=== PATIENT | male | born 1955 | race Asian ===

== ENCOUNTER 2017-01-31 19:00 | Inpatient (IN) | payer OTHER ==
[~2017-01-31] VITALS: Ht 167.6 cm; Wt 86.6 kg
[~2017-01-31 19:00] MED LIST: ALLO100T64 PO; ASPI-535 PO; ATEN-51 PO; ATOR40TA68 PO; Ibuprofen PO; LISI40TA PO; METF-382 PO; NIFE60TA24 PO
[2017-01-31 20:08] LABS: ADD SCAN DIFF NO
[2017-01-31] MEDS ORDERED: IBUP-1542 PO (20:11)
[2017-01-31 20:12] LABS: BASOPHIL # 0.1 10^3/ul (0.0-0.1); BASOPHILS % 0.8 % (0.0-2.0); EOSINOPHILS # 0.5 10^3/ul (0.0-0.5); EOSINOPHILS % 4.8 % (0.0-7.0); HEMATOCRIT 43.1 % (42.0-52.0); HEMOGLOBIN 14.8 g/dl (14.0-18.0); LYMPHOCYTES # 3.2 10^3/ul (0.8-2.9); LYMPHOCYTES % 28.7 % (15.0-51.0); MEAN CORPUSCULAR HEMOGLOBIN 29.5 pg (29.0-33.0); MEAN CORPUSCULAR HGB CONC 34.3 g/dl (32.0-37.0); MEAN CORPUSCULAR VOLUME 85.9 fl (82.0-101.0); MEAN PLATELET VOLUME 10.2 fl (7.4-10.4); MONOCYTES % 9.3 % (0.0-11.0); NEUTROPHIL # 6.1 10^3/ul (1.6-7.5); NEUTROPHILS % 55.1 % (39.0-77.0); PLATELET COUNT 333 10^3/UL (140-415); RED BLOOD COUNT 5.02 10^6/ul (4.70-6.10); RED CELL DISTRIBUTION WIDTH 12.4 % (11.5-14.5); WHITE BLOOD COUNT 11.1 10^3/ul (4.8-10.8)
[2017-01-31 20:14] LABS: ADD UMIC YES; URINE BILIRUBIN (Dip) NEGATIVE (NEGATIVE); URINE BLOOD (Dip) NEGATIVE (NEGATIVE); URINE COLOR LT. YELLOW (YELLOW); URINE GLUCOSE (Dip) NEGATIVE (NEGATIVE); URINE KETONES (Dip) TRACE (NEGATIVE); URINE LEUKOCYTE ESTERASE (Dip) NEGATIVE (NEGATIVE); URINE NITRITE (Dip) NEGATIVE (NEGATIVE); URINE TOTAL PROTEIN (Dip) 2+ (NEGATIVE); URINE UROBILINOGEN (Dip) 0.2 E.U./dL (0.1-1.0)
[2017-01-31 20:21] LABS: INR 0.99; PROTIME 13.1 Sec (12.2-14.2)
[2017-01-31 20:22] LABS: PARTIAL THROMBOPLASTIN TIME 27.5 Sec (25.0-35.0)
[2017-01-31] MEDS ORDERED: SOD CHLORIDE 0.9% 100 ML ONE (20:24)
[2017-01-31] MEDS ORDERED: IOHEXOL 100 ML ONE (20:24)
[2017-01-31] MEDS ORDERED: IOHEXOL 350MG/ML 50 ML BTL ONE (20:25)
[2017-01-31 20:26] LABS: ALBUMIN 4.4 g/dl (3.3-4.9); CHLORIDE 100 mmol/L (97-110)
[2017-01-31 20:27] LABS: POTASSIUM 3.5 mmol/L (3.5-5.1); SODIUM 143 mmol/L (135-144)
[2017-01-31 20:29] LABS: ALBUMIN/GLOBULIN RATIO 1.25; ANION GAP 21 (8-16); ASPARTATE AMINO TRANSFERASE 26 IU/L (15-46); BILIRUBIN,INDIRECT 0.3 mg/dl (0-1.1); BILIRUBIN,TOTAL 0.3 mg/dl (0.2-1.3); BLOOD UREA NITROGEN 23 mg/dl (7-20); CARBON DIOXIDE 26 mmol/L (21-31); CREATININE 0.98 mg/dl (0.61-1.24); TOTAL PROTEIN 7.9 g/dl (6.1-8.1)
[2017-01-31 20:30] LABS: ALANINE AMINOTRANSFERASE 34 IU/L (13-69); ALKALINE PHOSPHATASE 85 IU/L (42-121); CALCIUM 9.5 mg/dl (8.4-10.2); GLUCOSE 115 mg/dl (70-220)
--- NOTE | 2017-01-31 20:34 | RADRPT ---
PROCEDURE: XR Chest. CLINICAL INDICATION: Shortness of breath. TECHNIQUE: Portable AP view of the chest was obtained. COMPARISON: 12/31/2015 FINDINGS: The cardiomediastinal silhouette is within upper normal limits. The lungs are clear of acute infilt rates, calcified granulomata and hyperinflation are again noted. There is no evidence for pleural e ffusion, pneumothorax or pulmonary vascular congestion. The osseous structures are intact with no e vidence for acute abnormality. Calcification is visible within the aorta RPTAT:HJJR IMPRESSION: Chronic granulomatous disease superimposed upon hyperinflation of the lungs unable to exclude emphys torri, the appearance of the chest stable compared to 12/31/2015. Physician Temitope Date Time Electronically viewed and signed by Paul Lees Physician on 01/31/2017 20:33 JR/
[2017-01-31 20:37] LABS: B-TYPE NATRIURETIC PEPTIDE 58 PG/ML (0-125)
[2017-01-31 20:37] LABS: BACTERIA,URINE FEW; MUCUS,URINE FEW; URINE RBCS NONE SEEN /HPF (0)
[2017-01-31 20:41] LABS: TROPONIN-I < 0.012 ng/ml (0.00-0.12)
[2017-01-31] MEDS ORDERED: IPRATROPIUM (NEB) 0.5 MG/2.5 ML AMP NEB STA (20:58)
[2017-01-31] MEDS ORDERED: METHYLPREDNISOLONE 125 MG INJ IV STA (20:58)
[2017-01-31] MEDS ORDERED: ALBUTEROL 0.083% (NEB) 2.5 MG/3 ML AMP NEB STA (20:58)
--- NOTE | 2017-01-31 21:01 | ERA ---
ER Documentation Chief Complaint Date/Time DATE: 01/31/17 TIME: 20:59 Chief Complaint SOB 2PM TODAY, HX STENT/ASTHMA INHALER INEFFECTIVE HPI 61-year-old male who presents to the emergency room with shortness of breath. Patient does report a remote diagnosis of COPD. He also has a history of stent. He describes several days of dry nonproductive cough. He became more short of breath today and had no effect with his inhaler presenting to the emergency room. He denies any pleuritic pain, no calf swelling, no dyspnea on exertion. ROS All systems reviewed and are negative except as per history of present illness. Medications Home Meds Reported Medications Ibuprofen* (Ibuprofen*) 600 Mg Tablet, 600 MG PO Q6H Y for PAIN, TAB 01/31/17 Metformin Hcl* (Metformin Hcl*) 500 Mg Tablet, 500 MG PO BID WITH MEALS, #30 TAB 12/31/15 Atorvastatin* (Atorvastatin*) 40 Mg Tablet, 40 MG PO HS 04/01/14 Aspirin Ec (Aspir 81) 81 Mg Tablet.dr, 81 MG PO DAILY 04/01/14 Nifedipine* (Afeditab CR*) 60 Mg Tablet.er, 60 MG PO DAILY 04/01/14 Lisinopril* (Prinivil*) 40 Mg Tablet, 40 MG PO DAILY 04/01/14 Atenolol* (Atenolol*) 25 Mg Tablet, 25 MG PO DAILY 04/01/14 Discontinued Reported Medications Allopurinol* (Zyloprim*) 100 Mg Tablet, 100 MG PO DAILY 04/01/14 Discontinued Scripts [Ibuprofen] 600 MG TAB No Conflict Check, 600 MG PO Q6H Y for PAIN, #20 TAB 1 Refill Prov:ANGUS HASSAN MD 12/31/15 Allergies Allergies: Coded Allergies: No Known Allergy (Unverified , 01/31/17) PMhx/Soc Anesthesia Reaction: No Hx Neurological Disorder: No Hx Respiratory Disorders: No Hx Cardiac Disorders: Yes (SC, HTN, high CHOLESTEROL, CAD) Hx Psychiatric Problems: No Hx Miscellaneous Medical Probl: No Hx Alcohol Use: Yes (rarely) Hx Substance Use: No Hx Tobacco Use: Yes (quit two weeks ago) Smoking Status: Former smoker FmHx Family History: No diabetes Physical Exam Vitals Vital Signs Date Time Temp Pulse Resp B/P Pulse Ox O2 Delivery O2 Flow Rate FiO2 01/31/17 21:07 66 20 93 Nasal Cannula 2.0 01/31/17 20:03 Nasal Cannula 2 01/31/17 20:02 73 21 114/66 94 Nasal Cannula 2.0 01/31/17 19:36 Nasal Cannula 4.0 01/31/17 19:24 98.0 85 28 118/63 85 Physical Exam General: Slight tachypnea Head: Normocephalic, atraumatic. Eyes: Pupils equally reactive, EOM intact ENT: Moist mucous membranes Neck: Supple, no lymphadenopathy Respiratory: Scant rhonchi bilaterally, slight tachypnea Cardiovascular: RRR, no murmurs, rubs, or gallops Abdominal: Soft, non-tender, non-distended, no peritoneal signs : Deferred MSK: No edema, no unilateral swelling, 5/5 strength Neurologic: Alert and oriented, moving all extremities, normal speech, no focal weakness, no cerebellar signs Skin: No rash Psych: Normal mood Result Diagram: 01/31/17195501/31/171955 Results 24 hrs Laboratory Tests Test 01/31/17 19:00 01/31/17 19:56 Urine Bacteria FEW Urine Bilirubin NEGATIVE Urine Clarity CLEAR Urine Color LT. YELLOW Urine Epithelial Cells OCCASIONAL Urine Glucose NEGATIVE% Urine Hemoglobin NEGATIVE Urine Ketones TRACE Urine Leukocyte Esterase NEGATIVE Urine Microscopic RBC NONE SEEN/HPF Urine Microscopic WBC 0-2/HPF Urine Mucus FEW Urine Nitrite NEGATIVE Urine Specific [place] 1.025 Urine Total Protein 2+ Urine Urobilinogen 0.2 E.U./dL Urine pH 6.0 Activated Partial Thromboplast Time 27.5Sec Alanine Aminotransferase (ALT/SGPT) 34IU/L Albumin 4.4g/dl Albumin/Globulin Ratio 1.25 Alkaline Phosphatase 85IU/L Anion Gap 21 Aspartate Amino Transf (AST/SGOT) 26IU/L B-Type Natriuretic Peptide 58PG/ML Basophils # 0.110^3/ul Basophils % 0.8% Blood Urea Nitrogen 23mg/dl Calcium Level 9.5mg/dl Carbon Dioxide Level 26mmol/L Chloride Level 100mmol/L Creatinine 0.98mg/dl Direct Bilirubin 0.00mg/dl Eosinophils # 0.510^3/ul Eosinophils % 4.8% Globulin 3.50g/dl Glucose Level 115mg/dl Hematocrit 43.1% Hemoglobin 14.8g/dl INR International Normalized Ratio 0.99 Indirect Bilirubin 0.3mg/dl Lactic Acid Level 2.1mmol/L Lymphocytes # 3.210^3/ul Lymphocytes % 28.7% Mean Corpuscular Hemoglobin 29.5pg Mean Corpuscular Hemoglobin Concent 34.3g/dl Mean Corpuscular Volume 85.9fl Mean Platelet Volume 10.2fl Monocytes # 1.010^3/ul Monocytes % 9.3% Neutrophils # 6.110^3/ul Neutrophils % 55.1% Nucleated Red Blood Cells # 0.010^3/ul Nucleated Red Blood Cells % 0.0/100WBC Platelet Count 54363^3/UL Potassium Level 3.5mmol/L Prothrombin Time 13.1Sec Prothrombin Time Ratio 1.0 Red Blood Count 5.0210^6/ul Red Cell Distribution Width 12.4% Sodium Level 143mmol/L Total Bilirubin 0.3mg/dl Total Protein 7.9g/dl Troponin I < 0.012ng/ml White Blood Count 11.110^3/ul Current Medications Medications (Trade) Dose Ordered Sig/Arron Route PRN Reason Start Time Stop Time Status Last Admin Dose Admin IV Flush 10 ml 10 ml STK-MED ONCE .ROUTE 01/31/17 20:24 01/31/17 20:25 DC 01/31/17 21:45 Sodium Chloride 100 ml @ ud STK-MED ONCE .ROUTE 01/31/17 20:24 01/31/17 20:25 DC 01/31/17 21:51 Iohexol (Omnipaque) 100 ml @ ud STK-MED ONCE .ROUTE 01/31/17 20:24 01/31/17 20:25 DC 01/31/17 21:49 Iohexol (Omnipaque 350mg/ ml) 50 ml STK-MED ONCE .ROUTE 01/31/17 20:25 01/31/17 20:26 DC 01/31/17 21:50 Albuterol (Proventil 0.083% (Neb)) 2.5 mg ONCE STAT NEB 01/31/17 20:58 01/31/17 20:59 DC 01/31/17 21:07 Ipratropium [place] (Atrovent 0.02% (Neb)) 0.5 mg ONCE STAT NEB 01/31/17 20:58 3/13/17 20:59 DC 01/31/17 21:07 Methylprednisolone Sodium Succinate (Solu-Medrol) 125 mg ONCE STAT IV 01/31/17 20:58 01/31/17 20:59 DC 01/31/17 21:12 Azithromycin (Zithromax) 500 mg ONCE ONCE PO 01/31/17 22:30 01/31/17 22:31 DC 01/31/17 22:25 Procedures/MDM EKG, MONITORS, & DIAGNOSTIC IMAGING: EKG: I reviewed and interpreted a 12-lead EKG. Rhythm: Normal sinus rhythm Ectopy: None Intervals: No abnormalities ST segments: No elevations or depressions T waves: No contiguous inversions Chest x-ray: I reviewed and interpreted a 1 view of the chest Mediastinum: No enlargement Cardiac silhouette: No cardiomegaly Airspace: Clear lung ballesteros bilaterally without evidence of pneumothorax Bones: No evidence of fracture CT PE: IMPRESSION: 1. No evidence of pulmonary embolism or thoracic aortic abnormality other than atherosclerotic calcification. 2. Mild centrilobular emphysema with bullous changes in the lung apices and chronic granulomatous disease. 3. Small amount of secretions in the dependent main bronchi with peribronchial thickening concern for bronchitis without evidence of pneumonia. LAB INTERPRETATION: Negative troponin, no significant leukocytosis, normal BMP, negative lactic acid MEDICAL DECISION MAKING: The patient presents with hypoxia and cough. He does report remote history of COPD, no significant wheezing and good aeration. No evidence of pneumothorax. Low concern for CHF or acute coronary syndrome. Consideration for pulmonary embolism. Patient appears to have shunt physiology, consider pneumonia but no fever here. The patient will benefit from rapid evaluation given significant hypoxia triaged to 85%. Nasal cannula shows responsive oxygenation. ER COURSE: The patient was given a breathing treatment and Solu-Medrol. He seemed to have improvement with supplemental oxygen. Chest x-ray did not support the patient' s level of hypoxia prompting CTPA. CTPA negative. The patient has improved with breathing treatment, steroids. Oral azithromycin provided for COPD exacerbation. The patient will be admitted for further management of COPD. I kept the patient and/or family informed of laboratory and diagnostic imaging results throughout the emergency room course. DISPOSITION PLAN: The patient is stable for medical surgical floor management. CONSULTATION: Accepting care team and consultations: I discussed the current laboratory data, diagnostic imaging and emergency care provided. Admitting team: Dr. Jones Admitting team indication: Insurance directed Departure Diagnosis: Primary Impression: COPD with exacerbation Additional Impression: Hypoxia Condition: Stable REYNALDO TRIVEDI MD Jan 31, 2017 21:00
--- NOTE | 2017-01-31 22:16 | RADRPT ---
PROCEDURE: CT chest with contrast/PE protocol CLINICAL INDICATION: Chest pain and shortness of breath. Clinical concern for pulmonary embolism TECHNIQUE: The study was performed from the thoracic inlet to the upper abdomen with the use of 11 0 cc of Omnipaque 350 intravenous contrast material per PE protocol. Coronal/sagittal reformatted im ages and coronal MIP images were generated. The images were reviewed on a PACS workstation. CTDIvol = 33.52 mGy and DLP= 698.41 mGycm. COMPARISON: Chest x-ray 01/31/2017. CT chest 12/31/2015 FINDINGS: Lungs, airway and pleura: Some secretions within the dependent trachea and the main bronchi are pre sent with mild peribronchial thickening bilaterally but no evidence of bronchiectasis. Calcified gr anulomatous nodules in the upper lobes are again noted with mild stable centrilobular emphysema dania yo. There is no evidence of pulmonary mass or infiltrate. The pleural spaces are clear, without e ffusions. Mediastinum, diego and cardiovascular: The heart is normal in size. There is no evidence for perica rdial effusion. The thoracic aorta is normal in caliber without dissection but with moderate athero sclerotic calcification.There are no filling defects within the pulmonary arteries to suggest emboli . There is no evidence for hilar mass and no mediastinal adenopathy is present. The esophagus is n ormal in caliber with a small sliding hiatal hernia. Osseous structures and musculoskeletal findings: There is preservation of bone architecture and min eralization with no evidence for fracture, lytic or blastic lesion. Moderate thoracic spondylosis is noted No chest wall abnormalities are present. The axillary regions are unremarkable. Visualized upper abdomen: No abnormalities are identified. The adrenal glands are normal bilateral ly. RPTAT:HJJR IMPRESSION: 1. No evidence of pulmonary embolism or thoracic aortic abnormality other than atherosclerotic calci fication. 2. Mild centrilobular emphysema with bullous changes in the lung apices and chronic granulomatous d isease. 3. Small amount of secretions in the dependent main bronchi with peribronchial thickening concern f or bronchitis without evidence of pneumonia. Physician Temitope Date Time Electronically viewed and signed by Paul Nabeel, Physician on 01/31/2017 22:15 /
[2017-01-31] MEDS ORDERED: AZITHROMYCIN 250 MG TAB PO ONE (22:30)
[2017-01-31] MEDS ORDERED: SOD CHLORIDE 0.45% 1,000 ML IV SCH (22:37)
[2017-01-31] MEDS ORDERED: HYDROCODONE/APAP (5/325) TAB PO PRN (23:00)
[2017-01-31] MEDS ORDERED: NITROGLYCERIN (SL) 0.4 MG TAB SL PRN (23:00)
[2017-01-31] MEDS ORDERED: morphine 2 MG INJ IV PRN (23:00)
[2017-01-31] MEDS ORDERED: MAGNESIUM HYDROXIDE 30ML CUP PO PRN (23:00)
[2017-01-31] MEDS ORDERED: LORAZEPAM 2 MG INJ IV PRN (23:00)
[2017-01-31] MEDS ORDERED: NA PHOSPHATE/BIPHOS 133 ML ENEMA PR PRN (23:00)
[2017-01-31] MEDS ORDERED: ONDANSETRON 4 MG INJ IV PRN ×2 (23:00)
[2017-01-31] MEDS ORDERED: hydrALAzine 20 MG INJ IV PRN (23:00)
[2017-01-31] MEDS ORDERED: NACL 0.9% 3 ML SYG IV SCH (23:00)
[2017-01-31] MEDS ORDERED: ACETAMINOPHEN 325 MG TAB PO PRN ×2 (23:00)
[2017-01-31] MEDS ORDERED: DOCUSATE SODIUM 100 MG CAP PO PRN (23:00)
[2017-01-31] MEDS ORDERED: IBUPROFEN 600 MG TAB PO PRN (23:00)
[2017-01-31 23:52] VITALS: BP 125/80; PULSE 75; RESP 21; TEMP 98.9
[2017-02-01] MEDS: METHYLPREDNISOLONE 125 MG INJ IV SCH ×3 (02:38→12:41)
[2017-02-01 02:42] VITALS: Ht 167.6 cm; Wt 86.6 kg
[2017-02-01] MEDS: ALBUTEROL/IPRATROPIUM (NEB) 3 ML AMP HHN SCH ×3 (05:30→13:58)
[2017-02-01] MEDS ORDERED: SOD CHLORIDE 0.9% 1,000 ML IV SCH (06:00)
[2017-02-01] MEDS ORDERED: PANTOPRAZOLE (EC) 40 MG TAB PO SCH (06:00)
[2017-02-01 06:04] LABS: CHOL/HDL RATIO 2.6 RATIO
--- NOTE | 2017-02-01 06:22 | HP ---
DATE OF ADMISSION: 01/31/2017 The patient was seen and examined by me on 01/31/2017 at 10:15 p.m. CHIEF COMPLAINT: Shortness of breath. HISTORY OF PRESENT ILLNESS: A 61-year-old male with past medical history of COPD, prior heart attac k, hypertension, high cholesterol, and coronary artery disease who has been having shortness of deborah th that began earlier today. Apparently, he has a remote history of diagnosis of COPD, but he has a lso been having a few days of dry cough, nonproductive. He has been taking inhaler at home which di d not relieve his symptoms; did not relieve his coughing or his shortness of breath symptoms. No up per or lower GI bleeding. No dyspnea on exertion. No abdominal pain. No diarrhea. No constipatio n. When he came into the ER today, he was found with low oxygen levels around 85% and was given oxy gen supplementation in the ER and also given breathing treatment and IV steroids which helped reliev e his symptoms somewhat and also given antibiotics. His white count was slightly elevated at 11.1. PAST MEDICAL HISTORY: As stated above. ALLERGIES: NO KNOWN DRUG ALLERGIES. MEDICATIONS AT HOME: 1. Atenolol 25 mg daily. 2. Atorvastatin 40 mg at bedtime. 3. Lisinopril 40 mg daily. 4. Nifedipine 60 mg daily. 5. Aspirin 81 mg daily. 6. Ibuprofen 600 mg q. 6 p.r.n. 7. Metformin 500 mg b.i.d. with meals. FAMILY HISTORY: Noncontributory. SOCIAL HISTORY: Occasional alcohol use and apparently a former smoker, quit 2 weeks ago. Denies an y IV drug abuse. PHYSICAL EXAMINATION: VITAL SIGNS: T-max 98.0, pulse 66 to 85, respirations 20 to 28, blood pressure is 114/66, saturatin g at 85 to 93% O2 sat now on 2 liters nasal cannula. GENERAL: The patient is lying in bed, getting breathing treatment, alert, in no acute distress. HEENT: Pupils equal, round, react to light. Extraocular muscles intact. NECK: Supple, no thyromegaly. LUNGS: Some mild rhonchi heard bilaterally, mild wheezes. CARDIOVASCULAR: S1, S2 heard. No rubs or gallops. ABDOMEN: Soft, nontender, nondistended. Normal bowel sounds. No rebound or guarding. MUSCULOSKELETAL: No lower extremity edema bilaterally. NEUROLOGIC: No focal deficits. LABORATORIES: WBC 11.1. The rest of the CBC is normal. The sodium 143, potassium 3.5, chloride 10 0, CO2 26, BUN 23, creatinine 0.98, glucose 115, lactic acid is 2.1. LFTs are normal. Troponin is negative x1. UA showed negative nitrites, negative leukocyte esterase. IMAGING: He had a CTA performed of the chest revealing no PE, no thoracic aortic abnormality. Ther e is some mild centrilobular emphysema with bullous changes in the lung apices and chronic granuloma tous disease, small amount of secretions in the dependent main rhonchi with peribronchial thickening concerning for bronchitis, but no evidence of any pneumonia. Chest x-ray showed chronic granulomat ous disease superimposed upon hyperinflation of the lungs, unable to exclude emphysema. ASSESSMENT AND PLAN: A 61-year-old male with shortness of breath symptoms with signs of obstructive lung disease, COPD versus bronchitis. 1. Shortness of breath. Again, most likely secondary to a combination of chronic obstructive pulmo nary disease or bronchitis or both. We will put him on DuoNeb q. 4 hours around the clock, IV stero ids, 80 mg of Solu-Medrol q. 6 hours as well. Check TSH, A1c, and lipid panel. We will put him on antibiotics as well given his leukocytosis and higher risk for upper respiratory infection given his obstructive lung disease. Tylenol p.r.n. pain and fevers. We will get a pulmonary consult as well given the chest x-ray and CTA chest findings as well. 2. History of coronary artery disease with prior history of heart attack in the past. Continue to monitor for now. Continue current medications: aspirin, Lipitor, and nifedipine. 3. High cholesterol. Again, check a lipid panel. Continue statin. 4. Essential hypertension. Continue current medications as well. 5. Gastrointestinal prophylaxis, proton pump inhibitor. 6. Deep venous thrombosis prophylaxis, heparin subQ. 7. ____ smoking cessation as well. Dictated By: NANCI SERNA Conf#: [id number] DID#: [id number]
[2017-02-01 06:33] LABS: THYROID STIMULATING HORMONE 0.301 MIU/L (0.465-4.680)
[2017-02-01 08:18] LABS: ADD SCAN DIFF NO
[2017-02-01 08:30] LABS: POTASSIUM 3.6 mmol/L (3.5-5.1)
[2017-02-01 08:32] LABS: CREATININE 0.87 mg/dl (0.61-1.24)
[2017-02-01 08:33] LABS: CALCIUM 9.1 mg/dl (8.4-10.2); MAGNESIUM 1.7 mg/dl (1.7-2.5); PHOSPHORUS 2.3 mg/dl (2.5-4.9)
[2017-02-01] MEDS ORDERED: ASPIRIN (EC) 81 MG TAB PO SCH (09:00)
[2017-02-01] MEDS ORDERED: HEPARIN 5,000 UNIT/0.5 ML SYG SC SCH (09:00)
[2017-02-01] MEDS ORDERED: LEVOFLOXACIN 750MG/D5W (PMX) 150 ML IVPB SCH (09:00)
[2017-02-01] MEDS ORDERED: NIFEdipine (XL) 60 MG TAB PO SCH (09:00)
[2017-02-01 09:33] LABS: BASOPHILS % 0.5 % (0.0-2.0); HEMATOCRIT 42.2 % (42.0-52.0); HEMOGLOBIN 14.1 g/dl (14.0-18.0); LYMPHOCYTES # 0.7 10^3/ul (0.8-2.9); LYMPHOCYTES % 11.1 % (15.0-51.0); MEAN CORPUSCULAR HGB CONC 33.4 g/dl (32.0-37.0); MEAN CORPUSCULAR VOLUME 86.7 fl (82.0-101.0); MEAN PLATELET VOLUME 10.8 fl (7.4-10.4); MONOCYTES % 0.5 % (0.0-11.0); NEUTROPHIL # 5.8 10^3/ul (1.6-7.5); NEUTROPHILS % 87.1 % (39.0-77.0); PLATELET COUNT 312 10^3/UL (140-415); RED BLOOD COUNT 4.87 10^6/ul (4.70-6.10); RED CELL DISTRIBUTION WIDTH 12.8 % (11.5-14.5); WHITE BLOOD COUNT 6.6 10^3/ul (4.8-10.8)
--- NOTE | 2017-02-01 11:54 | RADRPT ---
Echocardiogram Report Patient Name: ILIA FAYE Gender: Male Date: 1955 Study Date: 01-Feb-2017 [employer] Sander: [facility] Location: 2252 Ref. Physician: NANCI BELL Quality: Adequate Procedures: Transthoracic echocardiogram with complete 2D, M-Mode, and doppler examination. Indications: Chest Pain. 2D/M Mode Doppler Measurement Value Normal Ranges Measurement Value Normal Ranges LVIDd 2D 4.6 3.5 - 5.6 cm AV Peak [place] 1.1 m/sec LVIDs 2D 3.0 2.1 - 4.1 cm AV Peak PG 4.8 mmHg LVPWd 2D 1.1 0.6 - 1.1 cm LVOT Peak [place] 1.1 m/sec IVSd 2D 1.7 0.6 - 1.1 cm LVOT Peak PG 5.3 mmHg AoR Diam 2D 3.3 2.0 - 3.7 cm EDV 2D 95.5 cm3 ESV 2D 26.9 cm3 Findings Left Ventricle: Hyperdynamic left ventricular systolic function. Normal left ventricular cavity size. Mild hypertrophy of the basal septum. Ejection fraction is visually estimated at 70 %. Tissue Doppler/Mitral Doppler indices are consistent with impaired relaxation (Stage I diastolic dysfunction). Right Ventricle: Normal right ventricular size. Normal right ventricular systolic function. Left Atrium: The left atrium is normal in size. Right Atrium: The right atrium is normal in size. Mitral Valve: Mild mitral leaflet calcification. Mild mitral annular calcification. Trace mitral regurgitation. Aortic Valve: Trileaflet aortic valve. Trace aortic valve regurgitation. Tricuspid Valve: Tricuspid valve not well visualized. There is trace tricuspid regurgitation. Pulmonic Valve: Pulmonic valve not well visualized. There is trace pulmonic regurgitation. Pericardium: There is an anterior echo free space consistent with epicardial fat pad. Aorta: Normal aortic root. IVC: Normal size and normal respiratory collapse consistent with normal right atrial pressure. Conclusions 1.Hyperdynamic left ventricular systolic function. Normal left ventricular cavity size. Mild hypertrophy of the basal septum. Ejection fraction is visually estimated at 70 %. Tissue Doppler/Mitral Doppler indices are consistent with impaired relaxation (Stage I diastolic dysfunction). 2.Tricuspid valve not well visualized. There is trace tricuspid regurgitation. 3.Mild mitral leaflet calcification. Mild mitral annular calcification. Trace mitral regurgitation. 4.Trileaflet aortic valve. Trace aortic valve regurgitation. Electronically Signed By: Rishabh Moore 01-Feb-2017 11:54:07 -0700 Patient Name: ILIA FAYE Study Date: 01-Feb-2017 [id number]
[2017-02-01] MEDS ORDERED: ALBU18HF INHALATION (12:06)
[2017-02-01] MEDS ORDERED: AZIT500T2 PO (12:06)
[2017-02-01] MEDS ORDERED: UDROBDM PO (12:06)
[2017-02-01] MEDS ORDERED: MED4DP PO (12:06)
--- NOTE | 2017-02-01 12:07 | PDOCDIS ---
Discharge Instructions DIAGNOSIS Discharge Diagnosis: 1. acute bronchitis 2. copd exacerbation CONDITION Patient Condition: Stable HOME CARE INSTRUCTIONS: Diet Instructions: Low Fat /CholesterolSpecial Diet: carbohydrate controlled FOLLOW UP/APPOINTMENTS Appointments 1. Follow up with Dr. Pablo Aguilar in a week 2. Follow up with your primary care provider in 1-2 weeks SUNI IBRAHIM Feb 01, 2017 12:07
--- NOTE | 2017-02-01 14:58 | DS ---
Date/Time of Note Date/Time of Note DATE: 02/01/17 TIME: 14:52 Discharge Summary Admission/Discharge Info Admit Date/Time Jan 31, 2017 at 22:36 Discharge Date/Time Final Diagnosis 1. Dyspnea secondary to COPD exacerbation 2. Acute bronchitis 3. History of CAD 4. Essential hypertension Patient Condition: Stable Hospital Course This is a 61-year-old male with history of COPD, prior CT, hypertension, dyslipidemia, CAD, who came to [facility] due to reports of shortness of breath. According to the patient he had been having some dry cough nonproductive and associated wheezing and shortness of breath. He came to [facility] and was found with a O2 85% on room air. He was given steroid treatment and did have significant positive response from it. We were able to titrate him off O2. We did continue him on DuoNeb therapy. Of note patient did report he ran out of his home bronchodilator medications. He stated that he had not had an issue with his COPD and roughly 3 years. We did continue him with steroid and also dilators as needed. He is also seen by fence repairman and advised for outpatient follow-up. During his course of stay did improve. Further CTA of essential no evidence of pulmonary embolism. He did have some small amount of secretions in the main bronchi with clinical picture of that of bronchitis without evidence of pneumonia. He was continued on antibiotic.He was otherwise optimized medically. He was continued on antihypertensives as needed for hypertension and statin medication for his CAD as well as antiplatelet therapy. As previously mentioned during his course of stay did improve. The plan of care was discussed with the patient and patient did verbalize his understanding. On the day of discharge patient was in stable condition Discussed but of care with Dr. Mackay Discharge process time is 40 minutes Disposition: Home Home Meds Active Scripts Guaifenesin-Dextromethorphan* (Robitussin* DM) 100MG/10MG/5ML Syrup, 10 ML PO QID Y for COUGH, #6 OZ Prov:SUNI IBRAHIM 02/01/17 Albuterol Sulfate* (Ventolin HFA*) 18 Gm Hfa.aer.ad, 2 PUFF INHALATION Q4H, #1 INHALER Prov:SUNI IBRAHIM 02/01/17 Methylprednisolone* (Medrol* DOSE PACK) 4 Mg/Dose-Pack Tab.ds.pk, 4 MG PO . DIRECTED, #1 PACKET Prov:SUNI IBRAHIM 02/01/17 Azithromycin* (Zithromax* Tri-Eliceo) 500 Mg Tablet, 500 MG PO DAILY for 3 Days, TAB Prov:SUNI IBRAHIM 02/01/17 Reported Medications Ibuprofen* (Ibuprofen*) 600 Mg Tablet, 600 MG PO Q6H Y for PAIN, TAB 01/31/17 Metformin Hcl* (Metformin Hcl*) 500 Mg Tablet, 500 MG PO BID WITH MEALS, #30 TAB 12/31/15 Atorvastatin* (Atorvastatin*) 40 Mg Tablet, 40 MG PO HS 04/01/14 Aspirin Ec (Aspir 81) 81 Mg Tablet.dr, 81 MG PO DAILY 04/01/14 Nifedipine* (Afeditab CR*) 60 Mg Tablet.er, 60 MG PO DAILY 04/01/14 Lisinopril* (Prinivil*) 40 Mg Tablet, 40 MG PO DAILY 04/01/14 Atenolol* (Atenolol*) 25 Mg Tablet, 25 MG PO DAILY 04/01/14 Discontinued Reported Medications Allopurinol* (Zyloprim*) 100 Mg Tablet, 100 MG PO DAILY 04/01/14 Discontinued Scripts [Ibuprofen] 600 MG TAB No Conflict Check, 600 MG PO Q6H Y for PAIN, #20 TAB 1 Refill Prov:ANGUS HASSAN MD 12/31/15 Follow-up Plan CONDITION Patient Condition: Stable HOME CARE INSTRUCTIONS: Diet Instructions: Low Fat /CholesterolSpecial Diet: carbohydrate controlled FOLLOW UP/APPOINTMENTS Appointments 1. Follow up with Dr. Pablo Aguilar in a week 2. Follow up with your primary care provider in 1-2 weeks Pending Labs Laboratory Tests Test 01/31/17 19:00 01/31/17 19:56 01/31/17 22:10 02/01/17 00:14 Urine Bacteria FEW Urine Bilirubin NEGATIVE (NEGATIVE) Urine Clarity CLEAR (CLEAR) Urine Color LT. YELLOW (YELLOW) Urine Epithelial Cells OCCASIONAL Urine Glucose NEGATIVE% (NEGATIVE) Urine Hemoglobin NEGATIVE (NEGATIVE) Urine Ketones TRACE (NEGATIVE) Urine Leukocyte Esterase NEGATIVE (NEGATIVE) Urine Microscopic RBC NONE SEEN/HPF (0) Urine Microscopic WBC 0-2/HPF (0) Urine Mucus FEW Urine Nitrite NEGATIVE (NEGATIVE) Urine Specific [place] 1.025 (1.003-1.030) Urine Total Protein 2+ (NEGATIVE) Urine Urobilinogen 0.2 E.U./dL (0.1-1.0) Urine pH 6.0 (5.0-9.0) Activated Partial Thromboplast Time 27.5Sec (25.0-35.0) Alanine Aminotransferase (ALT/SGPT) 34IU/L (13-69) Albumin 4.4g/dl (3.3-4.9) Albumin/Globulin Ratio 1.25 Alkaline Phosphatase 85IU/L (42-121) Anion Gap 21 (8-16) Aspartate Amino Transf (AST/SGOT) 26IU/L (15-46) B-Type Natriuretic Peptide 58PG/ML (0-125) Basophils # 0.110^3/ul (0.0-0.1) Basophils % 0.8% (0.0-2.0) Blood Urea Nitrogen 23mg/dl (7-20) Calcium Level 9.5mg/dl (8.4-10.2) Carbon Dioxide Level 26mmol/L (21-31) Chloride Level 100mmol/L (97-110) Creatinine 0.98mg/dl (0.61-1.24) Direct Bilirubin 0.00mg/dl (0.00-0.20) Eosinophils # 0.510^3/ul (0.0-0.5) Eosinophils % 4.8% (0.0-7.0) Free Thyroxine 1.32ng/dl (0.78-2.44) Globulin 3.50g/dl (1.3-3.2) Glucose Level 115mg/dl (70-220) Hematocrit 43.1% (42.0-52.0) Hemoglobin 14.8g/dl (14.0-18.0) INR International Normalized Ratio 0.99 Indirect Bilirubin 0.3mg/dl (0-1.1) Lactic Acid Level 2.1mmol/L (0.5-2.2) 1.9mmol/L (0.5-2.2) 2.3mmol/L (0.5-2.2) Lymphocytes # 3.210^3/ul (0.8-2.9) Lymphocytes % 28.7% (15.0-51.0) Mean Corpuscular Hemoglobin 29.5pg (29.0-33.0) Mean Corpuscular Hemoglobin Concent 34.3g/dl (32.0-37.0) Mean Corpuscular Volume 85.9fl (82.0-101.0) Mean Platelet Volume 10.2fl (7.4-10.4) Monocytes # 1.010^3/ul (0.3-0.9) Monocytes % 9.3% (0.0-11.0) Neutrophils # 6.110^3/ul (1.6-7.5) Neutrophils % 55.1% (39.0-77.0) Nucleated Red Blood Cells # 0.010^3/ul (0.0-0.0) Nucleated Red Blood Cells % 0.0/100WBC (0.0-0.0) Platelet Count 43056^3/UL (140-415) Potassium Level 3.5mmol/L (3.5-5.1) Prothrombin Time 13.1Sec (12.2-14.2) Prothrombin Time Ratio 1.0 Red Blood Count 5.0210^6/ul (4.70-6.10) Red Cell Distribution Width 12.4% (11.5-14.5) Sodium Level 143mmol/L (135-144) Total Bilirubin 0.3mg/dl (0.2-1.3) Total Protein 7.9g/dl (6.1-8.1) Troponin I < 0.012ng/ml (0.00-0.12) White Blood Count 11.110^3/ul (4.8-10.8) Test 02/01/17 04:52 02/01/17 05:24 Basophils # 0.010^3/ul (0.0-0.1) Basophils % 0.5% (0.0-2.0) Eosinophils # 0.010^3/ul (0.0-0.5) Eosinophils % 0.0% (0.0-7.0) Hematocrit 42.2% (42.0-52.0) Hemoglobin 14.1g/dl (14.0-18.0) Lymphocytes # 0.710^3/ul (0.8-2.9) Lymphocytes % 11.1% (15.0-51.0) Mean Corpuscular Hemoglobin 29.0pg (29.0-33.0) Mean Corpuscular Hemoglobin Concent 33.4g/dl (32.0-37.0) Mean Corpuscular Volume 86.7fl (82.0-101.0) Mean Platelet Volume 10.8fl (7.4-10.4) Monocytes # 0.010^3/ul (0.3-0.9) Monocytes % 0.5% (0.0-11.0) Neutrophils # 5.810^3/ul (1.6-7.5) Neutrophils % 87.1% (39.0-77.0) Nucleated Red Blood Cells # 0.010^3/ul (0.0-0.0) Nucleated Red Blood Cells % 0.0/100WBC (0.0-0.0) Platelet Count 30545^3/UL (140-415) Red Blood Count 4.8710^6/ul (4.70-6.10) Red Cell Distribution Width 12.8% (11.5-14.5) White Blood Count 6.610^3/ul (4.8-10.8) Anion Gap 23 (8-16) Blood Urea Nitrogen 22mg/dl (7-20) Calcium Level 9.1mg/dl (8.4-10.2) Carbon Dioxide Level 23mmol/L (21-31) Chloride Level 100mmol/L (97-110) Cholesterol Level 118mg/dl (100-200) Cholesterol/HDL Ratio 2.6RATIO Creatinine 0.87mg/dl (0.61-1.24) Glucose Level 229mg/dl (70-220) HDL Cholesterol 45mg/dl (30-78) Hemoglobin A1c 6.6% (0-5.9) LDL Cholesterol, Calculated 60mg/dl Magnesium Level 1.7mg/dl (1.7-2.5) Phosphorus Level 2.3mg/dl (2.5-4.9) Potassium Level 3.6mmol/L (3.5-5.1) Sodium Level 142mmol/L (135-144) Thyroid Stimulating Hormone (TSH) 0.301MIU/L (0.465-4.680) Triglycerides Level 64mg/dl (0-149) Microbiology Date/Time Source Procedure Growth Status 01/31/17 20:13 Nasopharyngeal Influenza Types A,B Direct EIA - Final Complete 01/31/17 19:00 Catheter Urine Urine Culture - Preliminary NO GROWTH AFTER 24 HOURS Resulted SUNI IBRAHIM Feb 01, 2017 14:58
--- NOTE | 2017-02-01 16:42 | CONS ---
DATE OF ADMISSION: 01/31/2017 DATE OF CONSULTATION: 02/01/2017 REASON FOR CONSULTATION: Shortness of breath. Thank you, Dr. Jones, for this consultation. HISTORY OF PRESENT ILLNESS: This is a 61-year-old gentleman with history of COPD, hypertension, hyp erlipidemia, admitted with several-day history of increasing shortness of breath, orthopnea, PND, fo und to have moderate hypoxemia on admission with bilateral expiratory wheezing, placed on intravenou s antibiotics, supplemental O2 and steroids. This morning, states he is somewhat better, rushing to go home. Patient states he used to smoke, quit smoking several years ago. PAST MEDICAL HISTORY: As above. MEDICATIONS: Per chart. ALLERGIES: NONE. SOCIAL HISTORY: Recent tobacco history. No alcohol, no history of drug use. FAMILY HISTORY: Noncontributory. SYSTEMS REVIEW: A 12-point review of systems was negative other than that mentioned above. PHYSICAL EXAMINATION: GENERAL: Well-nourished, well-developed gentleman, comfortable at rest, talking in full and complet e sentences. VITAL SIGNS: Within normal limits. CARDIAC: S1, S2, no added sounds or murmurs. LUNGS: Clear to auscultation bilaterally. ABDOMEN: Soft, nontender. No guarding or rebound. EXTREMITIES: No cyanosis, clubbing, or edema. NEUROLOGIC: Grossly intact. No focal deficits. LABS: Within normal limits. DIAGNOSTIC DATA: CT pulmonary angiogram showed emphysematous changes, but no pulmonary embolus. IMPRESSION AND PLAN: 1. Chronic obstructive pulmonary disease with acute exacerbation. 2. History of tobacco use. 3. History of hyperlipidemia. RECOMMENDATIONS 1. Discharge home with steroids and antibiotics. 2. Follow up with me in the office for pulmonary function testing and advice on continued smoking c essation. Dictated By: LEATHA MURO MD SV/KINDRA Conf#: [id number] DID#: [id number]
[2017-02-01] MEDS ORDERED: ATORVASTATIN 40 MG TAB PO SCH (21:00)
== END 2017-02-01 15:13 | disposition home or self-care (01) | DRG 192 ==
LOC: E/R 19:00 → PP2 22:36
PROVIDERS: ADMIT Hospitalist; ATTEND Hospitalist
DX: J44.1 Chronic obstructive pulmonary disease with (acute) exacerbation (principal); I10 Essential (primary) hypertension; J20.9 Acute bronchitis, unspecified; R09.02 Hypoxemia; I25.10 Atherosclerotic heart disease of native coronary artery without angina pectoris; E78.00 Pure hypercholesterolemia, unspecified; I25.2 Old myocardial infarction; Z87.891 Personal history of nicotine dependence; Z79.82 Long term (current) use of aspirin
CPT/HCPCS: 36415; 71010; 71275; 80048; 80053; 80061; 81001; 81003; 83036; 83605; 83735; 83880; 84100; 84439; 84443; 84484; 85025; 85610; 85730; 87040; 87045; 87086; 87400; 93005; 93306; 94640; 94664; 96374; 97162; J1956; J2930; J7030; Q9967